=== PATIENT | male | born 1960 | race Two or more races ===

== ENCOUNTER 2024-09-23 19:34 | Emergency (ER) | payer MEDICAID, OTHER ==
[~2024-09-23] VITALS: Ht 170.2 cm; Wt 67.8 kg
[2024-09-23 20:36] VITALS: BP 159/89; PULSE 89; RESP 16; TEMP 98.2; O2SAT 99
[2024-09-23 20:49] LABS: Urine Bacteria None Seen /hpf (None Seen)
--- NOTE | 2024-09-23 20:50 | ED.PDOC ---
General HPI Comments HPI: Poor Historian. 64y M who presents to the ED for chief complaint of suprapubic pain. - pt states he has been having suprapubic pain with associated abdominal distention for the past 8 days. - pt states he feels like" a ball is stuck" in his abdomen - pt has been having associated dysuria, urgency and frequency with associated abdominal bloating - pt has been associated sharp pains but his abdomen and suprapubic area, rating the pain 9/10, with no noted exacerbating or relieving factors - pt otherwise has noted history of BPH - pt denies any other symptoms at this time PMH: DM, HTN, HLD, BPH PSH: thyroidectomy, L foot surgery meds: unknown allergies: denies social history: denies etoh use, denies drug use, denies tobacco use REVIEW OF SYSTEMS: CONSTITUTIONAL: Denies acute: fever, diaphoresis, chills, HEAD: Denies acute: headache, photophobia Eyes: Denies acute: Double vision, vision loss, eye pain, eye discharge. EARS: Denies acute: tinnitus, hearing loss, ear discharge, ear pain, THROAT: Denies acute: sore throat, swelling, difficulty swallowing , pain with swallowing, change in voice. NECK: Denies acute: neck pain, neck swelling, stiff neck. HEART: Denies acute : chest pain, palpitations, LUNGS: Denies acute: SOB, wheezing, cough, hemoptysis ABDOMEN: Denies acute: , Nausea, Vomiting, diarrhea, melena , hematemesis, hematochezia SKIN: Denies acute: rash, redness, lesions, itchiness. EXTREMITIES: Denies acute: calf pain, numbness, tingling, weakness, denies pain in extremity. Denies acute: Low back pain. Neuro: Denies acute: focal neurological deficit, motor or sensory focal neurological deficit, tremors, seizure like activity, confusion, dizziness, change in mental status, loss of bowel or bladder function, cauda equina like symptoms. : Denies acute: hematuria, flank pain, PSYCH: Denies acute: hallucination, suicidal ideation, homicidal ideation. PHYSICAL EXAM: General: -----[id number]---acute distress, awake and alert. Head: normocephalic, atraumatic. Neck: supple, trachea is midline, no swelling. Throat: Normal phonation. Eyes:, no erythema, no purulent discharge, no proptosis, no icterus. Heart: regular rate, regular rhythm, no significant murmur appreciated. Lungs: no apparent respiratory distress, Able to speak in full sentences. No wheezing, no rhonchi, no crackles. No stridors Clear to auscultation bilaterally. Abdomen: Suprapubic tender to palpation, noted lower abdominal distention , soft, no guarding, no rebound, + bowel sounds. Neuro: Awake, Alert, oriented to name, self, situation, follows commands GCS=15. Speech is normal. Skin: no petechia, no purpura, no cyanosis, non-pale, not jaundice. Lower extremities: --trace bilateral - Pitting edema no deformity, no focal swelling, no calf TTP. Makes eye contact. moves all four extremities. Face: no apparent facial droop. Ambulating in the ED independently. ED COURSE: Chief Complaint: Urinary Time Seen by MD: 19:38 Reviewed notes: Medications, Allergies Allergies: Coded Allergies: No Known Drug Allergy (Verified Allergy, Unknown, 09/23/24) Information Source: Patient Mode of Arrival: Ambulatory Past Medical History PAST MEDICAL HISTORY: Denies Surgical History: Denies all surgeries Family History Family History: Reviewed,noncontributory to illness Social History Smoker: Non-Smoker Alcohol: Denies ETOH Use Drugs: Denies Drug Use Was a procedure done? Was a procedure done?: No Differential Diagnosis Kidney stone (Female): N/A Urinary Problem (Male): Bladder Outlet, Bladder Obstruction, Epididymitis, Prostatitis, Plelonephritis, Post op Complications, Renal Failure, Urethritis, Urinary Retention, Urolithiasis, UTI X-Ray, Labs, Meds, VS Vital Signs Date Time Temp Pulse Resp B/P (MAP) Pulse Ox O2 Delivery O2 Flow Rate FiO2 09/23/24 20:36 98.2 89 16 159/89 (112) 99 98.2 Lab Test 09/23/24 20:55 09/23/24 20:47 09/23/24 20:02 Range/Units Troponin I High Sensitivity 3 L 3 L </=54 ng/L Urine Color Light-yellow Yellow Urine Clarity Clear Clear Urine pH 5.5 5.0-9.0 Urine Specific [place] 1.011 1.001-1.035 Urine Protein Negative Negative Urine Ketones Negative Negative Urine Blood Negative Negative /uL Urine Nitrite Negative Negative Urine Bilirubin Negative Negative Urine Urobilinogen Normal Negative mg/dL Urine Leukocyte Esterase Negative Negative /uL Urine RBC <1 0 - 3 /hpf Urine Microscopic WBC < 1 0-3 /HPF Urine Squamous Epithelial Cells Few <5 /hpf Urine Bacteria None seen None Seen /hpf Urine Glucose 4+ H Normal mg/dL White Blood Count 9.4 4.4-10.8 10^3/uL Red Blood Count 4.72 4.5-5.90 10^6/uL Hemoglobin 14.6 13.5-17.5 g/dL Hematocrit 40.9 L 41.0-53.0 % Mean Corpuscular Volume 86.5 80.0-100.0 fL Mean Corpuscular Hemoglobin 30.9 28.0-32.0 pg Mean Corpuscular Hemoglobin Concent 35.7 32.0-36.0 g/dL Red Cell Distribution Width 12.9 11.8-14.3 % Platelet Count 157 140-450 10^3/uL Mean Platelet Volume 11.5 H 6.9-10.8 fL Neutrophils (%) (Auto) 63.6 37.0-80.0 % Lymphocytes (%) (Auto) 24.4 10.0-50.0 % Monocytes (%) (Auto) 10.0 0.0-12.0 % Eosinophils (%) (Auto) 1.3 0.0-7.0 % Basophils (%) (Auto) 0.7 0.0-2.0 % Neutrophils # (Auto) 6.0 1.6-8.6 10 ^3/uL Lymphocytes # (Auto) 2.3 0.4-5.4 10 ^3/uL Monocytes # (Auto) 0.9 0-1.3 10 ^3/uL Eosinophils # (Auto) 0.1 0-0.8 10 ^3/uL Basophils # (Auto) 0.1 0-0.2 10 ^3/uL Nucleated Red Blood Cells 0.0 % Sodium Level 138 136-145 mmol/L Potassium Level 4.3 3.5-5.1 mmol/L Chloride Level 101 98-107 mmol/L Carbon Dioxide Level 30 20-31 mmol/L Anion Gap 7 5-15 Blood Urea Nitrogen 26 H 9-23 mg/dL Creatinine 1.65 H 0.700-1.30 mg/dL Glomerular Filtration Rate Calc 46 >90 mL/min BUN/Creatinine Ratio 15.8 10.0-20.0 Serum Glucose 375 H 74-106 mg/dL Lactic Acid Level 0.7 0.4-2.0 mmol/L Calcium Level 10.5 H 8.7-10.4 mg/dL Total Bilirubin 1.0 0.2-1.0 mg/dL Aspartate Amino Transferase (AST) 57 H 13-40 U/L Alanine Aminotransferase (ALT) 91 H 7-40 U/L Alkaline Phosphatase 147 H 46-116 U/L B-Type Natriuretic Peptide 56.86 0-100 pg/mL Total Protein 7.1 5.7-8.2 g/dL Albumin 4.2 3.2-4.8 g/dL Lipase 42 12-53 U/L [place] [address] Ph: [phone] DIAGNOSTIC IMAGING Diagnostic Imaging Report : [id number] Signed PATIENT: MENDEZ MCNEALACCT: [id number] UNIT: [id number] : 1960 LOC: ER ROOM / BED: / AGE / SEX: 64 / M ADM STATUS: REG ER SERVICE 40 ORDERING PHYSICIAN: ANUM DUBON DO PROCEDURE(s): ABPL - CT AB PEL WO CON-NO ORAL OR IV REASON: abd pain ORDER NUMBER(s): [id number], ACCESSION NUMBER(s): [id number] Exam: CT CT AB PEL WO CON-NO ORAL OR IV History: abd pain Comparison Study: None TECHNIQUE: Multidetector CT of the abdomen was performed from lung bases to pubic symphysis. Imaging was performed without IV contrast. Axial, coronal and sagittal multiplanar reformats were obtained from the axial data set by the t echnologist. Radiation Dose Information: CT Dose: CTDI volume is 5.88 mGy. Dose-length product is 345.84 mGy*cm FINDINGS: Evaluation of solid organs is limited due to lack of intravenous contrast use. Findings: Lung Bases: No acute or significant lung base finding. Normal heart size. No pleural or pericardial effusion. Liver: The liver is normal in size. No focal lesions. Gallbladder and Biliary Tree: Unremarkable Spleen: Unremarkable Pancreas: The pancreas is grossly normal in appearance. Adrenal Glands: Unremarkable Kidneys: Findings worrisome for bilateral hydronephrosis. Bladder: Bladder distended with urine and mild thickening of the bladder wall measuring 5 mm. Measures 17 cm in length 9.8 cm in AP dimension and 12.6 cm in transverse dimension. Bowel: The stomach is grossly normal in appearance. Small bowel and colon are normal in caliber and distribution. The appendix is not visualized; however, no secondary findings of acute appendicitis identified. Ascites: Absent Lymphadenopathy: No mesenteric, retroperitoneal or periportal lymphadenopathy. Abdominal Wall and Mesentery: Unremarkable. Vasculature: The visualized abdominal aorta is normal in size and caliber. Evaluation of abdominal and pelvic vessels is limited due to lack of intravenous contrast. Pelvic Organs: Correlate with PSA. Musculoskeletal: No aggressive focal bony lesions, acute fractures or dislocation. Soft tissues: Unremarkable IMPRESSION: 1. Bilateral hydronephrosis with markedly urine distended bladder and mild bladder wall thickening may represent chronic bladder outlet obstruction. Prostate measures 7.4 x 6.8 cm correlate with PSA. 2. No findings of bowel obstruction. 3. Stool throughout colon. Radiation optimization: All CT scans at this facility use at least one of these dose optimization techniques: automated exposure control mA and/or kV adjustment per patient size (includes targeted exams where dose is matched to clinical indication) or iterative reconstruction. ATED BY: ODALYS ZIMMERMAN Jr., DO DICTATED DATE/TIME: 09/23/242108 SIGNED BY: ODALYS ZIMMERMAN Jr., SIGNED DATE/TIME: 09/23/242108 CC: Time of 1ST Reevaluation: 00:00 Reevaluation 1ST: N/A Patient Education/Counseling: Diagnosis, Treatment Family Education/Counseling: No Family Present Comments Patient presented with the above HPI.--pelvic/lower abdominal pain----workup was initiated. patient was found with the above mentioned diagnosis. the following medications were ordered: please refer to order lists of meds and tests obtained by myself Dr. Dubon. Patient ED course and VS have been stabilized. Patient has been reassessed in the ED and remained in a stable condition. Patient has been observed in the ED adequate length of time to insure improvement/stability. Escalation of care considered: Consideration of escalation to observation or admission Patient was found with acute urinary retention. Rucker catheter was ordered. No associated renal injury. Patient instructed to follow up with the Urology. I was later informed that the patient left without signing the discharge paper. Patient was DISCHARGED home in a stable condition. All the reports of any imaging studies that were ordered by myself were reviewed by myself. Departure 1 Departure Time of Disposition: 21:06 Impression: Primary Impression: Acute urinary retention Additional Impressions: Enlarged prostate Bilateral hydronephrosis Hyperglycemia Disposition: HOME / SELF CARE / HOMELESS Condition: Stable Additional Instructions: Additional instructions: You MUST follow-up with your primary care/family doctor in 1 to 2 days. If you are unable to see your primary care/family doctor, please return to our emergency room for re-assessment and re-evaluation in 1 to 2 days. Return to the emergency room here in our facility or to the nearest ER [facility] if your symptoms change or worsen. CONSULTATIONS: you MUST Follow-up for consultation as soon as possible with: -urology in 1-2 days. Please call for appointment. You MUST call the consultants office yourself to make an appointment. You may need to arrange that through your insurance and/or your primary/family doctor. If you are unable to see the oim consultant in 1 to 2 days, you must return to our emergency room (or any other ER of your choice) for re-assessment and re- evaluation. Adequate fluid hydration. Keep Rucker catheter in until you are evaluated by Urology. Below is a copy of your radiological report for follow up: [address] [address] Ph: [phone] DIAGNOSTIC IMAGING Diagnostic Imaging Report : [id number] Signed PATIENT: MENDEZ MCNEAL ACCT: [id number] UNIT: [id number] : 1960 LOC: ER ROOM / BED: / AGE / SEX: 64 / M ADM STATUS: REG ER SERVICE 40 ORDERING PHYSICIAN: ANUM DUBON DO PROCEDURE(s): ABPL - CT AB PEL WO CON-NO ORAL OR IV REASON: abd pain ORDER NUMBER(s): [id number], ACCESSION NUMBER(s): [id number] Exam: CT CT AB PEL WO CON-NO ORAL OR IV History: abd pain Comparison Study: None TECHNIQUE: Multidetector CT of the abdomen was performed from lung bases to pubic symphysis. Imaging was performed without IV contrast. Axial, coronal and sagittal multiplanar reformats were obtained from the axial data set by the technologist. Radiation Dose Information: CT Dose: CTDI volume is 5.88 mGy. Dose-length product is 345.84 mGy*cm FINDINGS: Evaluation of solid organs is limited due to lack of intravenous contrast use. Findings: Lung Bases: No acute or significant lung base finding. Normal heart size. No pleural or pericardial effusion. Liver: The liver is normal in size. No focal lesions. Gallbladder and Biliary Tree: Unremarkable Spleen: Unremarkable Pancreas: The pancreas is grossly normal in appearance. Adrenal Glands: Unremarkable Kidneys: Findings worrisome for bilateral hydronephrosis. Bladder: Bladder distended with urine and mild thickening of the bladder wall measuring 5 mm. Measures 17 cm in length 9.8 cm in AP dimension and 12.6 cm in transverse dimension. Bowel: The stomach is grossly normal in appearance. Small bowel and colon are normal in caliber and distribution. The appendix is not visualized; however, no secondary findings of acute appendicitis identified. Ascites: Absent Lymphadenopathy: No mesenteric, retroperitoneal or periportal lymphadenopathy. Abdominal Wall and Mesentery: Unremarkable. Vasculature: The visualized abdominal aorta is normal in size and caliber. Evaluation of abdominal and pelvic vessels is limited due to lack of intravenous contrast. Pelvic Organs: Correlate with PSA. Musculoskeletal: No aggressive focal bony lesions, acute fractures or dislo cation. Soft tissues: Unremarkable IMPRESSION: 1. Bilateral hydronephrosis with markedly urine distended bladder and mild bladder wall thickening may represent chronic bladder outlet obstruction. Prostate measures 7.4 x 6.8 cm correlate with PSA. 2. No findings of bowel obstruction. 3. Stool throughout colon. Radiation optimization: All CT scans at this facility use at least one of these dose optimization techniques: automated exposure control mA and/or kV adjustment per patient size (includes targeted exams where dose is matched to clinical indication) or iterative reconstruction. ATED BY: ODALYS ZIMMERMAN Jr., DO DICTATED DATE/TIME: 09/23/242108 SIGNED BY: ODALYS ZIMMERMAN Jr., SIGNED DATE/TIME: 09/23/242108 CC: Discharged With: Self Critical Care Note Critical Care Time?: Yes (35 min-critical care time only) I personally scribed for ANUM DUBON DO ([facility] on 09/23/24 at 20:50. Electronically submitted by [facility] ([facility] I personally scribed for ANUM DUBON DO ([email or web address]) on 09/23/24 at 21:46. Electronically submitted by [facility]enc[facility] Palmer ([facility]). I personally scribed for ANUM DUBON DO ([email or web address]) on 09/23/24 at 22:11. Electronically submitted by [facility] Palmer ([facility]). ANUM DUBON DO Sep 23, 2024 20:50
[2024-09-23 20:56] LABS: Urine Blood Negative /uL (Negative); Urine Clarity Clear (Clear); Urine Color Light-Yellow (Yellow); Urine Protein, UAD Negative (Negative); Urine Specific Gravity 1.011 (1.001-1.035); Urine Squamous Epithelial Cell FEW /hpf (<5); Urine Urobilinogen Normal (Negative); Urine WBC < 1 /HPF (0-3); Urine pH 5.5 (5.0-9.0)
[2024-09-23 20:58] LABS: Albumin 4.2 g/dL (3.2-4.8); Anion Gap 7 (5-15); BUN/Creatinine Ratio 15.8 (10.0-20.0); Carbon Dioxide 30 mmol/L (20-31); Chloride 101 mmol/L (98-107); Potassium 4.3 mmol/L (3.5-5.1); Sodium 138 mmol/L (136-145); Total Protein 7.1 g/dL (5.7-8.2)
[2024-09-23 21:02] LABS: Alanine Aminotransferase 91 U/L (7-40); Alkaline Phosphatase 147 U/L (46-116); Aspartate Aminotransferase 57 U/L (13-40); Blood Urea Nitrogen 26 mg/dL (9-23); Calcium 10.5 mg/dL (8.7-10.4); Glucose 375 mg/dL (74-106)
[2024-09-23 21:07] LABS: Basophils # (auto) 0.1 10 ^3/uL (0-0.2); Basophils % (auto) 0.7 % (0.0-2.0); Eosinophils # (auto) 0.1 10 ^3/uL (0-0.8); Eosinophils % (auto) 1.3 % (0.0-7.0); Hematocrit 40.9 % (41.0-53.0); Hemoglobin 14.6 g/dL (13.5-17.5); Lymphocytes # (auto) 2.3 10 ^3/uL (0.4-5.4); Lymphocytes % (auto) 24.4 % (10.0-50.0); Mean Corpuscular Hemoglobin 30.9 pg (28.0-32.0); Mean Corpuscular Hgb Conc. 35.7 g/dL (32.0-36.0); Mean Corpuscular Volume 86.5 fL (80.0-100.0); Monocytes # (auto) 0.9 10 ^3/uL (0-1.3); Neutrophils % (auto) 63.6 % (37.0-80.0); Platelet Count (auto) 157 10^3/uL (140-450); Red Blood Cells 4.72 10^6/uL (4.5-5.90); Red Cell Distribution Width 12.9 % (11.8-14.3); White Blood Cell 9.4 10^3/uL (4.4-10.8)
--- NOTE | 2024-09-23 21:11 | DVH ---
Exam: CT CT AB PEL WO CON-NO ORAL OR IV History: abd pain Comparison Study: None TECHNIQUE: Multidetector CT of the abdomen was performed from lung bases to pubic symphysis. Imaging was performed without IV contrast. Axial, coronal and sagittal multiplanar reformats were obtained fr om the axial data set by the technologist. Radiation Dose Information: CT Dose: CTDI volume is 5.88 mGy. Dose-length product is 345.84 mGy*cm FINDINGS: Evaluation of solid organs is limited due to lack of intravenous contrast use. Findings: Lung Bases: No acute or significant lung base finding. Normal heart size. No pleural or pericardial effusion. Liver: The liver is normal in size. No focal lesions. Gallbladder and Biliary Tree: Unremarkable Spleen: Unremarkable Pancreas: The pancreas is grossly normal in appearance. Adrenal Glands: Unremarkable Kidneys: Findings worrisome for bilateral hydronephrosis. Bladder: Bladder distended with urine and mild thickening of the bladder wall measuring 5 mm. Measure s 17 cm in length 9.8 cm in AP dimension and 12.6 cm in transverse dimension. Bowel: The stomach is grossly normal in appearance. Small bowel and colon are normal in caliber and d istribution. The appendix is not visualized; however, no secondary findings of acute appendicitis id entified. Ascites: Absent Lymphadenopathy: No mesenteric, retroperitoneal or periportal lymphadenopathy. Abdominal Wall and Mesentery: Unremarkable. Vasculature: The visualized abdominal aorta is normal in size and caliber. Evaluation of abdominal a nd pelvic vessels is limited due to lack of intravenous contrast. Pelvic Organs: Correlate with PSA. Musculoskeletal: No aggressive focal bony lesions, acute fractures or dislocation. Soft tissues: Unremarkable IMPRESSION: 1. Bilateral hydronephrosis with markedly urine distended bladder and mild bladder wall thickening ma y represent chronic bladder outlet obstruction. Prostate measures 7.4 x 6.8 cm correlate with PSA. 2. No findings of bowel obstruction. 3. Stool throughout colon. Radiation optimization: All CT scans at this facility use at least one of these dose optimization te chniques: automated exposure control mA and/or kV adjustment per patient size (includes targeted exa ms where dose is matched to clinical indication) or iterative reconstruction.
[2024-09-23 21:13] LABS: Lipase 42 U/L (12-53)
[2024-09-23] MEDS ORDERED: LIDOCAINE HCL 2% TOP JELLY 5ML TOP ONE (23:47)
== END 2024-09-23 23:50 | disposition home or self-care (01) ==
LOC: ER 19:34
DX: N40.1 Benign prostatic hyperplasia with lower urinary tract symptoms (principal); R33.9 Retention of urine, unspecified; N13.30 Unspecified hydronephrosis; E11.65 Type 2 diabetes mellitus with hyperglycemia; E78.5 Hyperlipidemia, unspecified; I10 Essential (primary) hypertension; Z90.89 Acquired absence of other organs
CPT/HCPCS: 36415; 74176; 80053; 81001; 83605; 83690; 83880; 84484; 85025

== ENCOUNTER 2024-09-26 12:15 | Inpatient (IN) | payer MEDICAID ==
[~2024-09-26] VITALS: Ht 165.1 cm; Wt 63.4 kg
--- NOTE | 2024-09-26 12:28 | ED.PDOC ---
GI ASSESSMENT HPI Comments 64 y/o M, with no prior medical history presents to the ED for CC of abdominal pain. Patient states, he has been experiencing RLQ abdominal pain with associated symptoms of nausea and vomiting [id number]. Patient reports, being seen at [facility] for SS on 09/23/24 and being departed with unremarkable findings. Patient denies fever, chills, back pain, or diarrhea. No other symptoms or modifying factors present at this time. Time Seen by MD: 12:30 Reviewed Notes: Nurses Notes, Medications, Allergies Allergies: Coded Allergies: No Known Drug Allergy (Verified Allergy, Unknown, 09/23/24) Information Source: Patient Mode of Arrival: Wheelchair Timing: Days Duration: Since onset Prehospital treatment: None Quality: None Vomitus: Watery Stool: Normal Severity: Moderate Recent: None Recent Hx of: None Pain Location: RLQ Modifying Factors: Nothing Associated sign and symptoms: Nausea, Vomiting, Abdominal Pain Past Medical History PAST MEDICAL HISTORY: Denies Surgical History: Denies all surgeries Family History Family History: Reviewed,noncontributory to illness Social History Smoker: Non-Smoker Alcohol: Denies ETOH Use Drugs: Denies Drug Use Lives In: Home Constitutional: denies: chills, diaphoresis, fatigue, fever, malaise, sweats, weakness, others EENTM: denies: blurred vision, double vision, ear bleeding, ear discharge, ear drainage, ear pain, ear ringing, eye pain, eye redness, hearing loss, mouth pain, mouth swelling, nasal discharge, nose bleeding, nose congestion, nose pain, photophobia, tearing, throat pain, throat swelling, voice changes, others Respiratory: denies: cough, hemoptysis, orthopnea, SOB at rest, shortness of breath, SOB with excertion, stridor, wheezing, others Cardiovascular: denies: chest pain, dizzy spells, diaphoresis, Dyspnea on exertion, edema, irregular heart beat, left arm pain, lightheadedness, palpitations, PND, syncope, others Gastrointestinal: reports: abdominal pain, nausea, vomiting; denies: abdomen distended, blood streaked bowels, constipated, diarrhea, dysphagia, difficulty swallowing, hematemesis, melena, poor appetite, poor fluid intake, rectal bleeding, rectal pain, others Genitourinary: denies: burning, dysuria, flank pain, frequency, hematuria, incontinence, penile discharge, penile sore, pain, testicle pain, testicle swelling, urgency, others Neurological: denies: dizziness, fainting, headache, left sided numbness, left sided weakness, numbness, paresthesia, pre-existing deficit, right sided numbness, right sided weakness, seizure, speech problems, tingling, tremors, weakness, others Musculoskeletal: denies: back pain, gout, joint pain, joint swelling, muscle pain, muscle stiffness, neck pain, others Integumetry: denies: bruises, change in color, change in hair/nails, dryness, laceration, lesions, lumps, rash, wounds, others Allergic/Immunocompromised: denies: Difficulty Healing, Frequent Infections, Hives, Itching, others Hematologic/Lymphatic: denies: anemia, blood clots, easy bleeding, easy bruising, swollen glands, others Endocrine: denies: excessive hunger, excessive sweating, excessive thirst, excessive urination, flushing, intolerance to cold, intolerance to heat, unexplained weight gain, unexplained weight loss, others Psychiatric: denies: anxiety, bipolar disorder, depression, hopeless, panic disorder, schizophrenia, sleepless, suicidal, others All Other Systems: Reviewed and Negative Physical Exam General Appearance: Moderate Distress HEENT: Normal ENT Inspection, Pharynx Normal, TMs Normal Neck: Full Range of Motion, Non-Tender, Normal, Normal Inspection Respiratory: Chest Non-Tender, Lungs Clear, No Accessory Muscle Use, No Respiratory Distress, Normal Breath Sounds Cardiovascular: No Edema, No JVD, No Murmur, No Gallop, Normal Peripheral Pulses, Regular Rate/Rhythm Breast Exam: Deferred Gastrointestinal: No Organomegaly, No Pulsatile Mass, Normal Bowel Sounds, Soft, Tenderness, Other (Mid abdominal mass) Genitalia: Deferred Pelvic: Deferred Rectal: Deferred Extremities: No calf tenderness, Normal capillary refill, Normal inspection, Normal range of motion, Non-tender, No pedal edema Musculoskeletal : Apperance: Normal Neurologic: Alert, housekeeper cleaning cooking II-XII nml as Tested, No Motor Deficits, Normal Affect, Normal Mood, No Sensory Deficits Cerebellar Function: Normal Reflexes: Normal Skin: Dry, Normal Color, Warm Lymphatic: No Adenopathy Was a procedure done? Was a procedure done?: No GI differential Dx Differential Diagnosis: Gastritis/PUD, Gastroenteritis, Electrolyte Imbalance, Food Poisoning, Bacterial, Viral X-Ray, Labs, Meds, VS Vital Signs Date Time Temp Pulse Resp B/P (MAP) Pulse Ox O2 Delivery O2 Flow Rate FiO2 09/26/24 12:32 98.3 74 16 185/91 (122) 97 98.3 Lab Test 09/26/24 12:58 09/26/24 12:01 Range/Units White Blood Count 12.1 #H 4.4-10.8 10^3/uL Red Blood Count 4.97 4.5-5.90 10^6/uL Hemoglobin 15.2 13.5-17.5 g/dL Hematocrit 43.5 41.0-53.0 % Mean Corpuscular Volume 87.6 80.0-100.0 fL Mean Corpuscular Hemoglobin 30.6 28.0-32.0 pg Mean Corpuscular Hemoglobin Concent 35.0 32.0-36.0 g/dL Red Cell Distribution Width 12.7 11.8-14.3 % Platelet Count 138 L 140-450 10^3/uL Mean Platelet Volume 10.7 6.9-10.8 fL Neutrophils (%) (Auto) 77.0 37.0-80.0 % Lymphocytes (%) (Auto) 13.0 10.0-50.0 % Monocytes (%) (Auto) 8.6 0.0-12.0 % Eosinophils (%) (Auto) 0.8 0.0-7.0 % Basophils (%) (Auto) 0.6 0.0-2.0 % Neutrophils # (Auto) 9.3 H 1.6-8.6 10 ^3/uL Lymphocytes # (Auto) 1.6 0.4-5.4 10 ^3/uL Monocytes # (Auto) 1.0 0-1.3 10 ^3/uL Eosinophils # (Auto) 0.1 0-0.8 10 ^3/uL Basophils # (Auto) 0.1 0-0.2 10 ^3/uL Nucleated Red Blood Cells 0.0 % Sodium Level 133 #L 136-145 mmol/L Potassium Level 5.1 3.5-5.1 mmol/L Chloride Level 98 98-107 mmol/L Carbon Dioxide Level 27 20-31 mmol/L Anion Gap 8 5-15 Blood Urea Nitrogen 32 H 9-23 mg/dL Creatinine 3.08 H 0.700-1.30 mg/dL Glomerular Filtration Rate Calc 22 >90 mL/min BUN/Creatinine Ratio 10.4 10.0-20.0 Serum Glucose 405 *H 74-106 mg/dL Calcium Level 10.4 8.7-10.4 mg/dL Urine Color Light-yellow Yellow Urine Clarity Clear Clear Urine pH 5.5 5.0-9.0 Urine Specific [place] 1.006 1.001-1.035 Urine Protein Negative Negative Urine Ketones Negative Negative Urine Blood Negative Negative /uL Urine Nitrite Negative Negative Urine Bilirubin Negative Negative Urine Urobilinogen Normal Negative mg/dL Urine Leukocyte Esterase Negative Negative /uL Urine RBC <1 0 - 3 /hpf Urine Microscopic WBC 2 0-3 /HPF Urine Squamous Epithelial Cells None seen <5 /hpf Urine Bacteria None seen None Seen /hpf Urine Glucose 4+ H Normal mg/dL The CBC shows an elevated white blood cell count is 12.1 The chemistry panel shows a BUN of 32 and a creatinine of 3.08 The patient's glucose is 405 indicating hyperglycemia The patient is being given insulin as well as normal saline as a bolus The urine test is negative for infection The patient is being admitted at this time. A Rucker catheter was ordered. Images Reviewed?: Images reviewed and evaluated by me Time of 1ST Reevaluation: 13:00 Reevaluation 1ST: Unchanged Patient Education/Counseling: Diagnosis, Treatment, Prognosis Family Education/Counseling: No Family Present Departure 1 Departure Time of Disposition: 14:21 Impression: Primary Impression: Intractable abdominal pain Additional Impressions: Hyperglycemia Generalized weakness Disposition: ADMITTED INPATIENT Admit to: [facility] Condition: Fair Critical Care Note Critical Care Time?: No Stability Stability form required: Yes Unstable for transfer: Telemetry monitoring (Telemetry monitoring required), ED Physician Assesment (Clinical assesment) Heart Score Heart Score: Heart Score Response (Comments) Value History N/A 0 EKG N/A 0 Age N/A 0 Risk Factors N/A 0 Troponin N/A 0 Total 0 I personally scribed for ALESIA PRIDE MD ([email or web address]) on 09/26/24 at 12:28. Electronically submitted by Shania Haq ([email or web address]). I personally scribed for ALESIA PRIDE MD ([email or web address]) on 09/26/24 at 12:35. Electronically submitted by Shania Haq ([email or web address]). ALESIA PRIDE MD Sep 26, 2024 12:28
[2024-09-26 12:41] LABS: Urine Bacteria None Seen /hpf (None Seen)
[2024-09-26 13:18] LABS: Basophils # (auto) 0.1 10 ^3/uL (0-0.2); Basophils % (auto) 0.6 % (0.0-2.0); Eosinophils # (auto) 0.1 10 ^3/uL (0-0.8); Eosinophils % (auto) 0.8 % (0.0-7.0); Hematocrit 43.5 % (41.0-53.0); Hemoglobin 15.2 g/dL (13.5-17.5); Lymphocytes # (auto) 1.6 10 ^3/uL (0.4-5.4); Mean Corpuscular Hemoglobin 30.6 pg (28.0-32.0); Mean Corpuscular Volume 87.6 fL (80.0-100.0); Monocytes % (auto) 8.6 % (0.0-12.0); Neutrophils # (auto) 9.3 10 ^3/uL (1.6-8.6); Platelet Count (auto) 138 10^3/uL (140-450); Red Blood Cells 4.97 10^6/uL (4.5-5.90); Red Cell Distribution Width 12.7 % (11.8-14.3); White Blood Cell 12.1 10^3/uL (4.4-10.8)
[2024-09-26 13:25] LABS: Potassium 5.1 mmol/L (3.5-5.1)
[2024-09-26 13:26] LABS: Anion Gap 8 (5-15); Calcium 10.4 mg/dL (8.7-10.4); Carbon Dioxide 27 mmol/L (20-31)
[2024-09-26 13:29] LABS: Chloride 98 mmol/L (98-107); Sodium 133 mmol/L (136-145)
[2024-09-26 13:31] LABS: BUN/Creatinine Ratio 10.4 (10.0-20.0)
[2024-09-26 13:34] LABS: Blood Urea Nitrogen 32 mg/dL (9-23)
[2024-09-26 13:41] LABS: Glucose 405 mg/dL (74-106)
[2024-09-26 13:46] LABS: Urine Blood Negative /uL (Negative); Urine Clarity Clear (Clear); Urine Color Light-Yellow (Yellow); Urine Protein, UAD Negative (Negative); Urine Specific Gravity 1.006 (1.001-1.035); Urine Squamous Epithelial Cell None Seen /hpf (<5); Urine Urobilinogen Normal (Negative); Urine WBC 2 /HPF (0-3); Urine pH 5.5 (5.0-9.0)
[2024-09-26] MEDS ORDERED: DEXTROSE (50%) 50ML SYRG IV PRN (15:30)
[2024-09-26] MEDS: ACCU-CHEK COMFORT CURVE STRIP VI SCH (16:37)
[2024-09-26] MEDS: InsuLIN REG 1unit/0.01ml Soln (100units/ml) SC SCH (16:44)
[2024-09-26] MEDS: NIFEdipine ER 30 MG TAB PO SCH (16:45)
[2024-09-26] MEDS: cefTRIAXone 1GM/50ML D5W 50 ML IV SCH (16:45)
[2024-09-26] MEDS: INSULIN LANTUS (GLARGINE) 1 /0.01ml (100units/ml) SC SCH (16:46)
[2024-09-26 16:52] VITALS: BP 164/91; PULSE 68; PULSE 78; RESP 18; TEMP 98.7; O2SAT 97; O2SAT 99
[2024-09-26 16:58] VITALS: BP 164/91; PULSE 68; RESP 18; TEMP 98.7; O2SAT 99
--- NOTE | 2024-09-26 16:58 | DVHHP2 ---
SELVIN COLLINS RESIDENT 09/26/24 1108: History of Present Illness Reason for Visit: acute urinary retention History of Present Illness 64-year-old male with a history of type 2 diabetes mellitus, hypertension, hyperlipidemia, and BPH, who presents to the ED with abdominal pain. He reports suprapubic discomfort for the past 8 days, described as a sensation of "a ball stuck in the abdomen," associated with dysuria, urgency, frequency, and bloat ing. He denies fever, chills, back pain, or diarrhea. He also noted RLQ pain with nausea and vomiting for approximately 10 days. Pain is rated 9/10 and has been sharp in nature. No noted exacerbating or relieving factors. He reports a known history of BPH. Denies other symptoms. Patient was seen on the ED due to urinary obstruction on September 23, patient was without ng at my assessment Past Medical History: Type 2 Diabetes Mellitus Hypertension Hyperlipidemia Benign Prostatic Hyperplasia Past Surgical History: Thyroidectomy Foot surgery Medications: Unknown Allergies: NKDA Family History: Non-contributory Social History: Denies tobacco, alcohol, or drug use Lives at home Review of Systems Review of Systems Review of Systems: Constitutional: Denies fever, chills, weight loss HEENT: Denies ear pain, nasal drainage CV: Denies chest pain, palpitations Respiratory: Denies SOB GI: Reports abdominal pain, nausea, vomiting, abdominal distension, constipation : Reports dysuria, urgency, frequency, BPH Neuro: Denies focal deficits, headaches, or seizures Psych: Denies anxiety or depression Skin: Denies rash or lesions Allergies: Coded Allergies: No Known Drug Allergy (Verified Allergy, Unknown, 09/23/24) Medications Current Medications Medications Dose Ordered Sig/Cedric Route Start Time Stop Time Status Last Admin Dose Admin Enoxaparin Sodium 30 mg DAILY SC 09/27/24 10:00 Insulin Glargine 15 units HS SC 09/26/24 15:15 09/26/24 16:46 15 UNITS Nifedipine 30 mg DAILY PO 09/26/24 15:15 09/26/24 16:45 30 MG Tamsulosin HCl 0.4 mg QPM PO 09/26/24 18:00 Ceftriaxone Sodium 50 ml @ 100 mls/hr DAILY@09 IV 09/26/24 15:15 09/26/24 16:45 100 MLS/HR Diagnostic Test (Pha) 1 strip IQ4HR 09/26/24 16:00 09/26/24 16:37 1 STRIP Insulin Human Regular IQ4HR SC 09/26/24 16:00 09/26/24 16:44 8 UNITS Dextrose 50 ml UD PRN IV 09/26/24 15:30 Exam Vital Signs Vital Signs Date Time Temp Pulse Resp B/P (MAP) Pulse Ox O2 Delivery O2 Flow Rate FiO2 09/26/24 16:45 164/91 09/26/24 14:50 98.0 76 18 97 98.0 Exam Physical Exam: General: Appears uncomfortable HEENT: No scleral icterus or oral lesions Cardiovascular: RRR, no murmurs Pulmonary: Clear to auscultation Abdomen: Distended, tenderness in suprapubic and RLQ area, no rebound or guardin g, no CVA tenderness : Ng inserted with 700 cc urine output Neuro: Alert and oriented x3 Extremities: No edema Skin: No rashes or lesions Labs/Xrays Labs Test 09/26/24 16:35 09/26/24 12:58 09/26/24 12:01 Range/Units POC Glucose 323 H 70-106 mg/dl White Blood Count 12.1 #H 4.4-10.8 10^3/uL Red Blood Count 4.97 4.5-5.90 10^6/uL Hemoglobin 15.2 13.5-17.5 g/dL Hematocrit 43.5 41.0-53.0 % Mean Corpuscular Volume 87.6 80.0-100.0 fL Mean Corpuscular Hemoglobin 30.6 28.0-32.0 pg Mean Corpuscular Hemoglobin Concent 35.0 32.0-36.0 g/dL Red Cell Distribution Width 12.7 11.8-14.3 % Platelet Count 138 L 140-450 10^3/uL Mean Platelet Volume 10.7 6.9-10.8 fL Neutrophils (%) (Auto) 77.0 37.0-80.0 % Lymphocytes (%) (Auto) 13.0 10.0-50.0 % Monocytes (%) (Auto) 8.6 0.0-12.0 % Eosinophils (%) (Auto) 0.8 0.0-7.0 % Basophils (%) (Auto) 0.6 0.0-2.0 % Neutrophils # (Auto) 9.3 H 1.6-8.6 10 ^3/uL Lymphocytes # (Auto) 1.6 0.4-5.4 10 ^3/uL Monocytes # (Auto) 1.0 0-1.3 10 ^3/uL Eosinophils # (Auto) 0.1 0-0.8 10 ^3/uL Basophils # (Auto) 0.1 0-0.2 10 ^3/uL Nucleated Red Blood Cells 0.0 % Sodium Level 133 #L 136-145 mmol/L Potassium Level 5.1 3.5-5.1 mmol/L Chloride Level 98 98-107 mmol/L Carbon Dioxide Level 27 20-31 mmol/L Anion Gap 8 5-15 Blood Urea Nitrogen 32 H 9-23 mg/dL Creatinine 3.08 H 0.700-1.30 mg/dL Glomerular Filtration Rate Calc 22 >90 mL/min BUN/Creatinine Ratio 10.4 10.0-20.0 Serum Glucose 405 *H 74-106 mg/dL Calcium Level 10.4 8.7-10.4 mg/dL Urine Color Light-yellow Yellow Urine Clarity Clear Clear Urine pH 5.5 5.0-9.0 Urine Specific [place] 1.006 1.001-1.035 Urine Protein Negative Negative Urine Ketones Negative Negative Urine Blood Negative Negative /uL Urine Nitrite Negative Negative Urine Bilirubin Negative Negative Urine Urobilinogen Normal Negative mg/dL Urine Leukocyte Esterase Negative Negative /uL Urine RBC <1 0 - 3 /hpf Urine Microscopic WBC 2 0-3 /HPF Urine Squamous Epithelial Cells None seen <5 /hpf Urine Bacteria None seen None Seen /hpf Urine Glucose 4+ H Normal mg/dL Assessment/Plan Assessment/Plan #Acute urinary retention #EFRAIN due to obstructive uropathy #Sepsis due to UTI? #Bilateral hydronephrosis with markedly urine distended bladder and mild bladder wall thickening may represent chronic bladder outlet obstruction #BPH #Uncontrolled diabetes type 2 #Hypertensive crisis Admit Med/Surg Ng insertion: 700 cc drained Ceftriaxone IV Nifedipine PO Tamsulosin PO Lantus 15 ui ISS Pending: urine studies, urine culture Pending kidney ultrasound Pending PSA Case discussed with Dr Og Vasquez discussed with: Patient, Other My Orders Orders - SELVIN COLLINS RESIDENT Procedure Category Date Status Time Admit ADMIT 09/26/24 Transmitted 15:04 Code Status CODE 09/26/24 Transmitted 15:04 Vital Signs LARA 09/26/24 In Process 15:04 Review Orders With LARA 09/26/24 In Process Adm. 15:04 Consistent DIET 09/26/24 Transmitted Carb(Ccho)Diabetes Dinner Notify Md Of Changes LARA 09/26/24 In Process From Base 15:04 Advance Directive LARA 09/26/24 In Process 15:04 Patient Condition ORDERS 09/26/24 Transmitted 15:04 Allergies LARA 09/26/24 In Process 15:04 Insert/Manage Urinary LARA 09/26/24 In Process Catheter 15:04 Communication Order ORDERS 09/26/24 Transmitted 15:04 Insulin Lantus PHA 09/26/24 In Process (Glargine) (Lantus) 15:15 Bladder Scan ED NURSING 09/26/24 Transmitted Nifedipine Er PHA 09/26/24 In Process (Procardia Xl 15:15 Tamsulosin PHA 09/26/24 In Process Hydrochloride (Flomax) 18:00 Ceftriaxone 1gm/50ml PHA 09/26/24 In Process D5w (Rocephin) 15:15 Glucose Blood PHA 09/26/24 In Process (Accu-Chek Comfort 16:00 Insulin R (Human) PHA 09/26/24 In Process (Insulin R) 16:00 Dextrose 50% Syringe PHA 09/26/24 In Process 15:30 Enoxaparin Sodium PHA 09/27/24 In Process (Lovenox) 10:00 Date of Service: Sep 26, 2024 Billing Provider: MOON ARCOS MD Common Visit Codes: [id number] INP/OBS CARE (HIGH) Secondary Visit Codes: [id number] CARE PLAN 30 MINUTES MOON ARCOS MD 09/30/242057: Review of Systems Allergies: Coded Allergies: No Known Drug Allergy (Verified Allergy, Unknown, 09/23/24) Date of Service: Sep 26, 2024 Billing Provider: MOON ARCOS MD Common Visit Codes: [id number] INP/OBS CARE (HIGH) SELVIN COLLINS Sep 26, 2024 16:58 MOON ARCOS MD Sep 30, 2024 20:58
[2024-09-26] MEDS: TAMSULOSIN HYDROCHLORIDE 0.4 MG CAP PO SCH (18:52)
[2024-09-26 19:32] LABS: Sodium Urine 14 mmol/L (40-220)
[2024-09-26 19:40] LABS: Protein, Urine < 6.0 mg/dL (1-14)
[2024-09-26 19:41] LABS: Amphetamine Screen, Urine Neg (NEGATIVE); Barbiturate Scree,Urine Neg (NEGATIVE); Benzodiazephine Screen, Urine Neg (NEGATIVE); Cannabinoid Screen, Urine Neg (NEGATIVE); Cocaine Screen, Urine Pos (NEGATIVE); Opiate Scree,Urine Neg (NEGATIVE); Phencyclidine Screen, Urine Neg (NEGATIVE)
[2024-09-26 20:00] VITALS: BP 158/89; PULSE 82; RESP 16; TEMP 98.5; O2SAT 98
[2024-09-26 20:30] VITALS: BP 144/87; PULSE 84; RESP 19; TEMP 98.4; O2SAT 100
--- NOTE | 2024-09-26 20:53 | DVH ---
RENAL ULTRASOUND CLINICAL HISTORY: hydroneprhosis TECHNIQUE: Multiple grayscale ultrasound images were obtained through the kidneys and urinary bladder . COMPARISON: CT abdomen and pelvis from 09/23/2024 FINDINGS: Right kidney: Measures 11.1 cm. Mild hydronephrosis. Left kidney: Measures 11.1 cm. Mild hydronephrosis. Urinary bladder: Rucker catheter decompresses the urinary bladder. IMPRESSION: Mild bilateral hydronephrosis.
[2024-09-27] VITALS (11 sets, daily range): BP systolic 110–143; BP diastolic 60–82; PULSE 74–100; RESP 18–20; TEMP 97.9–99.6; O2SAT 94–100
[2024-09-27 06:34] LABS: Basophils # (auto) 0.1 10 ^3/uL (0-0.2); Basophils % (auto) 0.8 % (0.0-2.0); Eosinophils # (auto) 0.1 10 ^3/uL (0-0.8); Hemoglobin 14.8 g/dL (13.5-17.5); Lymphocytes # (auto) 2.1 10 ^3/uL (0.4-5.4); Lymphocytes % (auto) 19.8 % (10.0-50.0); Mean Corpuscular Hemoglobin 30.8 pg (28.0-32.0); Mean Corpuscular Hgb Conc. 35.2 g/dL (32.0-36.0); Mean Corpuscular Volume 87.5 fL (80.0-100.0); Monocytes # (auto) 1.1 10 ^3/uL (0-1.3); Monocytes % (auto) 9.8 % (0.0-12.0); Neutrophils # (auto) 7.4 10 ^3/uL (1.6-8.6); Neutrophils % (auto) 68.6 % (37.0-80.0); Nucleated Red Blood Cells % 0.2 %; Platelet Count (auto) 162 10^3/uL (140-450); Red Cell Distribution Width 12.8 % (11.8-14.3); White Blood Cell 10.8 10^3/uL (4.4-10.8)
[2024-09-27 06:49] LABS: Anion Gap 10 (5-15); Carbon Dioxide 31 mmol/L (20-31); Chloride 103 mmol/L (98-107); Sodium 144 mmol/L (136-145)
[2024-09-27 06:50] LABS: Calcium 9.8 mg/dL (8.7-10.4)
[2024-09-27 06:55] LABS: BUN/Creatinine Ratio 14.4 (10.0-20.0); Blood Urea Nitrogen 28 mg/dL (9-23); Glucose 97 mg/dL (74-106)
[2024-09-27] MEDS ORDERED: cefTRIAXone 1GM/50ML D5W 50 ML IV SCH (09:00)
[2024-09-27 10:07] LABS: PSA Free 1.29 ng/mL; Prostate Specific Antigen 6.7 ng/mL (0.0-4.0)
[2024-09-27] MEDS: ENOXAPARIN SOD 30 MG/0.3 ML SYRINGE SC SCH (10:22)
--- NOTE | 2024-09-27 11:46 | DVHPNRES ---
Progress Note Date Seen: Sep 27, 2024 Resident Creating Document: SELVIN COLLINS RESIDENT Has the PT tested + for MRSA If YES, has PT been informed?: No Medical Necessity Reason Pt with a Central, PICC or Fol: No Subjective Review of Systems 64-year-old male with a history of type 2 diabetes mellitus, hypertension, hyperlipidemia, and BPH, who presents to the ED with abdominal pain. He reports suprapubic discomfort for the past 8 days, described as a sensation of "a ball stuck in the abdomen," associated with dysuria, urgency, frequency, and bloating. He denies fever, chills, back pain, or diarrhea. He also noted RLQ pain with nausea and vomiting for approximately 10 days. Pain is rated 9/10 and has been sharp in nature. No noted exacerbating or relieving factors. He reports a known history of BPH. Denies other symptoms. Patient was seen on the ED due to urinary obstruction on September 23, patient was without ng at my assessment 09/27/2024: ng catheter placed, 700 cc drained at insertion, creatinine improves from 3 to 1.9, today clear urine, we will continue monitor today, pateint will need f/u with urologist as outpatient for possible prostetctomy, PSA mildly elevated Objective vital signs Vital Sign Date Time Temp Pulse Resp B/P (MAP) Pulse Ox O2 Delivery O2 Flow Rate FiO2 09/27/24 10:22 120/72 09/27/24 09:20 98.7 83 20 98 98.7 09/26/24 16:52 Room Air* 0 21 Total Intake and Output 09/26/24 09/26/24 09/27/24 15:00 23:00 07:00 Intake Total 130 ml 800 ml Output Total 2520 ml 3525 ml Balance -2390 ml -2725 ml medications Current Medications Medications Dose Ordered Sig/Cedric Route Start Time Stop Time Status Last Admin Dose Admin Enoxaparin Sodium 30 mg DAILY SC 09/27/24 10:00 09/27/24 10:22 30 MG Insulin Glargine 15 units HS SC 09/26/24 15:15 09/26/24 21:06 15 UNITS Nifedipine 30 mg DAILY PO 09/26/24 15:15 09/27/24 10:22 30 MG Tamsulosin HCl 0.4 mg QPM PO 09/26/24 18:00 09/26/24 18:52 0.4 MG Ceftriaxone Sodium 50 ml @ 100 mls/hr DAILY@09 IV 09/26/24 15:15 09/27/24 10:20 100 MLS/HR Diagnostic Test (Pha) 1 strip IQ4HR 09/26/24 16:00 09/27/24 08:00 1 STRIP Insulin Human Regular IQ4HR SC 09/26/24 16:00 09/27/24 10:34 3 UNITS Dextrose 50 ml UD PRN IV 09/26/24 15:30 Examination Physical Exam: HEENT: No scleral icterus or oral lesions Cardiovascular: RRR, no murmurs Pulmonary: Clear to auscultation Abdomen: , no rebound or guarding, no CVA tenderness : Ng inserted with clear urine output Neuro: Alert and oriented x3 Extremities: No edema Skin: No rashes or lesions laboratory and microbiology Laboratory Tests 09/27/24 05:59 Test 09/27/24 05:59 Range/Units Serum Glucose 97 # 74-106 mg/dL Problem List/Assessment/Plan Problem List/Assessment/Plan #Acute urinary retention #EFRAIN due to obstructive uropathy #Sepsis due to UTI? #Bilateral hydronephrosis with markedly urine distended bladder and mild bladder wall thickening may represent chronic bladder outlet obstruction #BPH #Uncontrolled diabetes type 2 #Hypertensive crisis Admit Med/Surg Ng insertion: 700 cc drained Ceftriaxone IV Nifedipine PO Tamsulosin PO Lantus 15 ui ISS Pending: urine culture kidney ultrasound: mild hydronephrosis PSA mildly elevated Case discussed with Dr Foley Plan discussed with: Patient, Other My Orders My Orders Orders - SELVIN COLLINS Procedure Category Date Status Time Admit ADMIT 09/26/24 Transmitted 15:04 Code Status CODE 09/26/24 Transmitted 15:04 Vital Signs LARA 09/26/24 In Process 15:04 Review Orders With LARA 09/26/24 In Process Adm. 15:04 Consistent DIET 09/26/24 Transmitted Carb(Ccho)Diabetes Dinner Notify Of Changes LARA 09/26/24 In Process From Base 15:04 Advance Directive LARA 09/26/24 In Process 15:04 Patient Condition ORDERS 09/26/24 Transmitted 15:04 Allergies LARA 09/26/24 In Process 15:04 Insert/Manage Urinary LARA 09/26/24 In Process Catheter 15:04 Communication Order ORDERS 09/26/24 Transmitted 15:04 Insulin Lantus PHA 09/26/24 In Process (Glargine) (Lantus) 15:15 Bladder Scan ED NURSING 09/26/24 Transmitted Nifedipine Er PHA 09/26/24 In Process (Procardia Xl 15:15 Tamsulosin PHA 09/26/24 In Process Hydrochloride (Flomax) 18:00 Ceftriaxone 1gm/50ml PHA 09/26/24 In Process D5w (Rocephin) 15:15 Glucose Blood PHA 09/26/24 In Process (Accu-Chek Comfort 16:00 Insulin R (Human) PHA 09/26/24 In Process (Insulin R) 16:00 Dextrose 50% Syringe PHA 09/26/24 In Process 15:30 Enoxaparin Sodium PHA 09/27/24 In Process (Lovenox) 10:00 Mrsa Screen JOEL 09/26/24 In Process 18:39 Kidney US 09/26/24 Resulted 18:47 Urine Bacterial JOEL 09/26/24 In Process Culture 20:20 Date of Service: Sep 27, 2024 Billing Provider: MOON FOLEY MD Common Visit Codes: [id number] INP/OBS CARE(HIGH) SELVIN COLLINS RESIDENT Sep 27, 2024 11:45 MOON FOLEY MD Sep 30, 2024 21:09
[2024-09-28] VITALS (7 sets, daily range): BP systolic 102–140; BP diastolic 63–82; PULSE 64–78; RESP 16–18; TEMP 98.2–99.4; O2SAT 95–100
[2024-09-28 04:45] LABS: Basophils # (auto) 0.1 10 ^3/uL (0-0.2); Basophils % (auto) 0.8 % (0.0-2.0); Eosinophils # (auto) 0.2 10 ^3/uL (0-0.8); Hemoglobin 14.1 g/dL (13.5-17.5); Lymphocytes # (auto) 2.2 10 ^3/uL (0.4-5.4); Lymphocytes % (auto) 20.2 % (10.0-50.0); Mean Corpuscular Hemoglobin 31.3 pg (28.0-32.0); Mean Corpuscular Volume 86.8 fL (80.0-100.0); Monocytes # (auto) 1.1 10 ^3/uL (0-1.3); Monocytes % (auto) 9.6 % (0.0-12.0); Neutrophils # (auto) 7.5 10 ^3/uL (1.6-8.6); Neutrophils % (auto) 67.4 % (37.0-80.0); Nucleated Red Blood Cells % 0.1 %; Platelet Count (auto) 141 10^3/uL (140-450); Red Cell Distribution Width 12.8 % (11.8-14.3); White Blood Cell 11.1 10^3/uL (4.4-10.8)
[2024-09-28 04:54] LABS: Chloride 104 mmol/L (98-107); Potassium 3.9 mmol/L (3.5-5.1); Sodium 142 mmol/L (136-145)
[2024-09-28 04:55] LABS: Anion Gap 8 (5-15); Carbon Dioxide 30 mmol/L (20-31)
[2024-09-28 04:56] LABS: Calcium 10.3 mg/dL (8.7-10.4)
[2024-09-28 05:00] LABS: Glucose 75 mg/dL (74-106)
[2024-09-28 05:01] LABS: Blood Urea Nitrogen 24 mg/dL (9-23)
[2024-09-28 05:47] LABS: Platelet Estimate Decreased
[2024-09-28 05:48] LABS: Giant Platelets Few
[2024-09-28] MEDS ORDERED: FIN5T GT (13:41)
[2024-09-28] MEDS ORDERED: METF-929 PO (13:41)
[2024-09-28] MEDS ORDERED: TAMS0.4C39 PO (13:41)
[2024-09-28] MEDS ORDERED: LANC-347 XX (13:41)
[2024-09-28] MEDS ORDERED: BLOO-169 XX (13:41)
[2024-09-28] MEDS ORDERED: SITA50TA PO (13:41)
[2024-09-28] MEDS ORDERED: GLUC-224 VI (13:41)
[2024-09-28] MEDS ORDERED: ISOP70MI2 EX (13:41)
[2024-09-28] MEDS ORDERED: INSU100I70 SC (13:41)
[2024-09-28] MEDS ORDERED: AMLO1TAB23 PO (15:13)
--- NOTE | 2024-09-28 15:14 | DVHDSRES ---
Discharge Summary Date of Admission Resident Creating Document: SELVIN COLLINS RESIDENT Sep 26, 2024 at 15:04 Date of Discharge: Sep 28, 2024 Admitting Diagnosis Obstructive nephropathy Wounds: Labs/Diagnostic Data: Laboratory Results Test 09/28/24 11:57 09/28/24 03:59 09/26/24 12:58 09/26/24 12:01 POC Glucose 140 mg/dl (70-106) White Blood Count 11.1 10^3/uL (4.4-10.8) Red Blood Count 4.50 10^6/uL (4.5-5.90) Hemoglobin 14.1 g/dL (13.5-17.5) Hematocrit 39.0 % (41.0-53.0) Mean Corpuscular Volume 86.8 fL (80.0-100.0) Mean Corpuscular Hemoglobin 31.3 pg (28.0-32.0) Mean Corpuscular Hemoglobin Concent 36.0 g/dL (32.0-36.0) Red Cell Distribution Width 12.8 % (11.8-14.3) Platelet Count 141 10^3/uL (140-450) Mean Platelet Volume 11.1 fL (6.9-10.8) Neutrophils (%) (Auto) 67.4 % (37.0-80.0) Lymphocytes (%) (Auto) 20.2 % (10.0-50.0) Monocytes (%) (Auto) 9.6 % (0.0-12.0) Eosinophils (%) (Auto) 2.0 % (0.0-7.0) Basophils (%) (Auto) 0.8 % (0.0-2.0) Neutrophils # (Auto) 7.5 10 ^3/uL (1.6-8.6) Lymphocytes # (Auto) 2.2 10 ^3/uL (0.4-5.4) Monocytes # (Auto) 1.1 10 ^3/uL (0-1.3) Eosinophils # (Auto) 0.2 10 ^3/uL (0-0.8) Basophils # (Auto) 0.1 10 ^3/uL (0-0.2) Nucleated Red Blood Cells 0.1 % Platelet Estimate Decreased Clumped Platelets Few Giant Platelets Few Sodium Level 142 mmol/L (136-145) Potassium Level 3.9 mmol/L (3.5-5.1) Chloride Level 104 mmol/L (98-107) Carbon Dioxide Level 30 mmol/L (20-31) Anion Gap 8 (5-15) Blood Urea Nitrogen 24 mg/dL (9-23) Creatinine 1.41 mg/dL (0.700-1.30) Glomerular Filtration Rate Calc 56 mL/min (>90) BUN/Creatinine Ratio 17.0 (10.0-20.0) Serum Glucose 75 mg/dL (74-106) Calcium Level 10.3 mg/dL (8.7-10.4) Hemoglobin A1c > 14.0 % A1C (<5.7) Free Prostate Specific Antigen 1.29 ng/mL (N/A) Percent Free Prostate Specific Ag 19.3 % (.) Prostate Specific Antigen Total 6.7 ng/mL (0.0-4.0) Thyroid Stimulating Hormone (TSH) 0.68 uIU/mL (0.55-4.78) Urine Color Light-yellow (Yellow) Urine Clarity Clear (Clear) Urine pH 5.5 (5.0-9.0) Urine Specific [place] 1.006 (1.001-1.035) Urine Protein Negative (Negative) Urine Ketones Negative (Negative) Urine Blood Negative /uL (Negative) Urine Nitrite Negative (Negative) Urine Bilirubin Negative (Negative) Urine Urobilinogen Normal mg/dL (Negative) Urine Leukocyte Esterase Negative /uL (Negative) Urine RBC <1 /hpf (0 - 3) Urine Microscopic WBC 2 /HPF (0-3) Urine Squamous Epithelial Cells None seen /hpf (<5) Urine Bacteria None seen /hpf (None Seen) Urine Creatinine 55.50 mg/dL (30.0-125.0) Urine Sodium 14 mmol/L (40-220) Urine Glucose 4+ mg/dL (Normal) Urine Total Protein < 6.0 mg/dL (1-14) Urine Opiates Screen Neg (NEGATIVE) Urine Fentanyl Screen Neg (NEGATIVE) Urine Barbiturates Screen Neg (NEGATIVE) Urine Phencyclidine Screen Neg (NEGATIVE) Urine Amphetamines Screen Neg (NEGATIVE) Urine Benzodiazepines Screen Neg (NEGATIVE) Urine Cocaine Screen Pos (NEGATIVE) Urine Cannabinoids Screen Neg (NEGATIVE) Other Laboratory Tests 09/28/24 03:59 Brief Hx & Hospital Course: 64-year-old male with a history of type 2 diabetes mellitus, hypertension, hyperlipidemia, and BPH, who presents to the ED with abdominal pain. He reports suprapubic discomfort for the past 8 days, described as a sensation of "a ball stuck in the abdomen," associated with dysuria, urgency, frequency, and bloating. He denies fever, chills, back pain, or diarrhea. He also noted RLQ pain with nausea and vomiting for approximately 10 days. Pain is rated 9/10 and has been sharp in nature. No noted exacerbating or relieving factors. He reports a known history of BPH. Denies other symptoms. Patient was seen on the ED due to urinary obstruction on September 23, patient was without ng at my assessment Past Medical History: Type 2 Diabetes Mellitus Hypertension Hyperlipidemia Benign Prostatic Hyperplasia Hospital course: The patient was admitted at the line of obstructive nephropathy, due to BPH. Ng catheter was passed, and the patient we are able to drain urine. Ultrasound performed and showed mild bilateral hydronephrosis. Serum creatinine was found to be raised at 3.08, after relief of blockage, serum creatinine gradually decreased. Hb A1c was found to be more than 14, the patient was given insulin Lantus. Blood pressure was raised at 185/91, the patient was given nifedipine. On 09/29/2023, the patient was feeling better since admission. Discharge plan discussed with the patient, the patient's family and patient discharged home. Discharge plan: Follow up with the PCP within 1 week of the discharge. Follow up with the Urology on outpatient basis. Tablet tamsulosin 0.4 mg daily Tablet finasteride 5 mg daily Insulin Lantus 15 units daily Metformin 1 g b.i.d. Sitagliptin 50 mg daily Condition at Discharge: Fair Final Diagnosis/Problems List Acute urinary retention EFRAIN, likely VMN Sirs positive Bilateral hydronephrosis with markedly urine distended bladder and mild bladder wall thickening may represent chronic bladder outlet obstruction BPH Uncontrolled diabetes type 2 with hyperglycemia Hypertensive heart disease Hypertensive emergency Ruled out sepsis Sirs positive Discharge Disposition: Home Discharge Instruct/Medications Diet: Regular Activity: No Restrictions, As Tolerated Follow Up/Referral: Follow up with the PCP within 1 week of the discharge. Follow up with the Urology on outpatient basis. Medications: Insulin glargine 15 units daily, due given during the evening time Metformin 1 g b.i.d. Sitagliptin 50 mg daily Flomax 0 4 mg daily Finasteride 5 mg daily Discharge Statement: "Patient was advised to return to the ER or call 911 if any headaches, dizziness, shortness of breath, chest pain, abdominal pain, bleeding, fevers, or worsening of medical condition. Patient was counseled about treatment plan, medications, possible side effects, patientverbalized understanding. All questions were answered to the best of my ability. This discharge took greater then 30 minutes in planning, reviewing documentation, counseling the patient, and discussing with other team members." ASSESSMENT ASSESSMENT Assessment Obstructive nephropathy Date of Service: Sep 28, 2024 Billing Provider: MOON ARCOS MD Common Visit Codes: 39426-SVZ/OBS DISCH DAY >30min GRACE PIKN RESDIENT Sep 28, 2024 15:14 MOON ARCOS MD Sep 30, 2024 21:18
[2024-09-29 01:00] VITALS: BP 127/74; PULSE 79; RESP 16; TEMP 98; O2SAT 97
[2024-09-29 05:00] VITALS: BP 122/76; PULSE 89; RESP 16; TEMP 98.4; O2SAT 99
[2024-09-29 08:00] VITALS: PULSE 72; RESP 17; O2SAT 96
[2024-09-29 09:00] VITALS: BP 126/66; PULSE 72; RESP 17; TEMP 98.2; O2SAT 96
[2024-09-29] MEDS: ENOXAPARIN SOD 40 MG/0.4 ML SYRINGE SC SCH (09:07)
--- NOTE | 2024-09-29 11:23 | DVH ---
Technique: Real-time ultrasound images through the pelvis using a transabdominal transducer for evalu ation of the bladder Indication: hematuria Comparison: 09/23/2024 Findings: m there is diffuse thickening of the bladder wall up to 1.8 cm. There is hyperemia of the bladder wal l. Bladder decompressed by Rucker catheter. Impression: Abnormally thickening bladder wall diffusely with hyperemia. Correlate for cystitis, neoplasm , obst ructive etiology and other infiltrative processes. Recommend urology consultation.
[2024-09-29 13:00] VITALS: BP_SYST 127; BP_SYST 131; BP_DIAS 70; BP_DIAS 80; PULSE 71; RESP 19; TEMP 98.1; O2SAT 97; O2SAT 98
--- NOTE | 2024-09-29 15:05 | DVHPNRES ---
Progress Note Date Seen: Sep 29, 2024 Resident Creating Document: SELVIN COLLINS RESIDENT Has the PT tested + for MRSA If YES, has PT been informed?: No Medical Necessity Reason Pt with a Central, PICC or Fol: No Subjective Review of Systems 64-year-old male with a history of type 2 diabetes mellitus, hypertension, hyperlipidemia, and BPH, who presents to the ED with abdominal pain. He reports suprapubic discomfort for the past 8 days, described as a sensation of "a ball stuck in the abdomen," associated with dysuria, urgency, frequency, and bloating. He denies fever, chills, back pain, or diarrhea. He also noted RLQ pain with nausea and vomiting for approximately 10 days. Pain is rated 9/10 and has been sharp in nature. No noted exacerbating or relieving factors. He reports a known history of BPH. Denies other symptoms. Patient was seen on the ED due to urinary obstruction on September 23, patient was without ng at my assessment 09/27/2024: ng catheter placed, 700 cc drained at insertion, creatinine improves from 3 to 1.9, today clear urine, we will continue monitor today, pateint will need f/u with urologist as outpatient for possible prostetctomy, PSA mildly elevated 09/29/2024: DC was held yesterday due to hematuria, today bladder US showed bladder thickening but no large cloths, patient will be dc home with ng and urology appt . Objective vital signs Vital Sign Date Time Temp Pulse Resp B/P (MAP) Pulse Ox O2 Delivery O2 Flow Rate FiO2 09/29/24 13:00 98.1 71 19 127/70 (89) 97 98.1 09/29/24 08:00 Room Air* 0 21 Total Intake and Output 09/28/24 09/28/24 09/29/24 15:00 23:00 07:00 Intake Total 1140 ml 750 ml Output Total 850 ml 550 ml Balance 290 ml 200 ml medications Current Medications Medications Dose Ordered Sig/Cedric Route Start Time Stop Time Status Last Admin Dose Admin Insulin Glargine 15 units HS SC 09/26/24 15:15 09/28/24 21:34 15 UNITS Nifedipine 30 mg DAILY PO 09/26/24 15:15 09/29/24 09:11 30 MG Tamsulosin HCl 0.4 mg QPM PO 09/26/24 18:00 09/28/24 17:38 0.4 MG Diagnostic Test (Pha) 1 strip IQ4HR 09/26/24 16:00 09/29/24 12:14 1 STRIP Insulin Human Regular IQ4HR SC 09/26/24 16:00 09/29/24 12:14 2 UNITS Dextrose 50 ml UD PRN IV 09/26/24 15:30 Enoxaparin Sodium 40 mg DAILY SC 09/29/24 10:00 09/29/24 09:07 40 MG Examination HEENT: No scleral icterus or oral lesions Cardiovascular: RRR, no murmurs Pulmonary: Clear to auscultation Abdomen: , no rebound or guarding, no CVA tenderness : Ng inserted with clear urine output Neuro: Alert and oriented x3 Extremities: No edema Skin: No rashes or lesions laboratory and microbiology Laboratory Tests 09/28/24 03:59 Test 09/28/24 03:59 Range/Units Serum Glucose 75 74-106 mg/dL Microbiology Date/Time Source Procedure Growth Status 09/26/24 20:20 Nose MRSA Screen - Final Complete 09/26/24 12:01 Voided Urine Urine Culture - Final Complete Problem List/Assessment/Plan Problem List/Assessment/Plan #Acute urinary retention #EFRAIN due to obstructive uropathy #Sepsis due to UTI? #Bilateral hydronephrosis with markedly urine distended bladder and mild bladder wall thickening may represent chronic bladder outlet obstruction #BPH #Uncontrolled diabetes type 2 #Hypertensive crisis Ng insertion: 700 cc drained Ceftriaxone IV Nifedipine PO Tamsulosin PO Lantus 15 ui ISS kidney ultrasound: mild hydronephrosis PSA mildly elevated 09/27/2024: ng catheter placed, 700 cc drained at insertion, creatinine improves from 3 to 1.9, today clear urine, we will continue monitor today, pateint will need f/u with urologist as outpatient for possible prostetctomy, PSA mildly elevated 09/29/2024: DC was held yesterday due to hematuria, today bladder US showed bladder thickening but no large cloths, patient will be dc home with ng and urology appt . Case discussed with Dr Og Vasquez discussed with: Patient, Other My Orders My Orders Orders - SELVIN COLLINS Procedure Category Date Status Time Enoxaparin Sodium PHA 09/29/24 In Process (Lovenox) 10:00 Bladder US 09/29/24 Resulted 10:28 Discharge DISCHARGE 09/29/24 Transmitted 14:36 Communication Order ORDERS 09/29/24 Transmitted 14:36 Date of Service: Sep 29, 2024 Billing Provider: MOON ARCOS MD Common Visit Codes: [id number] INP/OBS CARE(HIGH) SELVIN COLLINS RESIDENT Sep 29, 2024 15:05 MOON ARCOS MD Sep 30, 2024 21:32
[2024-09-29 15:10] VITALS: BP 131/80; PULSE 71; RESP 19; TEMP 98.1; O2SAT 98
== END 2024-09-29 17:06 | disposition home or self-care (01) | DRG 501 ==
LOC: ER 12:21 → OVERFLOW 15:04 → WEST WING 20:30
PROVIDERS: ADMIT Student in an Organized Health Care Education/Training Program; ATTEND Emergency Medicine
DX: N40.1 Benign prostatic hyperplasia with lower urinary tract symptoms (principal); N17.0 Acute kidney failure with tubular necrosis; R65.11 Systemic inflammatory response syndrome (SIRS) of non-infectious origin with acute organ dysfunction; N13.39 Other hydronephrosis; N13.8 Other obstructive and reflux uropathy; E11.65 Type 2 diabetes mellitus with hyperglycemia; I16.1 Hypertensive emergency; E78.5 Hyperlipidemia, unspecified; I10 Essential (primary) hypertension; R33.8 Other retention of urine; N39.0 Urinary tract infection, site not specified
CPT/HCPCS: 36415; 76775; 76857; 80048; 80307; 81001; 82570; 82962; 83036; 84154; 84156; 84300; 84443; 85025; 87081; 87086; G0378; J1815

== ENCOUNTER 2024-10-08 08:39 | Emergency (ER) | payer MEDICAID ==
[~2024-10-08] VITALS: Ht 177.8 cm; Wt 63.1 kg
[~2024-10-08 08:39] MED LIST: AMLO1TAB23 PO; BLOO-169 XX; FIN5T GT; GLUC-224 VI; INSU100I70 SC; ISOP70MI2 EX; LANC-347 XX; METF-929 PO; SITA50TA PO; TAMS0.4C39 PO
--- NOTE | 2024-10-08 09:01 | ED.PDOC ---
History of Present Illness HPI Comments 64-year-old male came to the ER stating that he has a Rucker catheter in place for the past 13 days and want the catheter to be removed. History of prostate. He denies any burning on urination or any pain at urethral site. Denies fever nausea vomiting. Denies any other symptoms. Chief Complaint: Tube Replacement Time Seen by MD: 08:57 Reviewed Notes: Nurses Notes, Medications, Allergies Allergies: Coded Allergies: No Known Drug Allergy (Verified Allergy, Unknown, 09/23/24) Home Meds Active Scripts Sulfamethoxazole W/Trimethopri (Bactrim Ds Tablet) 1 Tab Tb, 1 TAB PO BID for 5 Days, #10 TAB Prov:SUNNY TRIPLETT MD 10/08/24 Amlodipine Besylate (Amlodipine Besylate) 10 Mg Tab, 10 MG PO DAILY for 20 Days, #20 TAB 2 Refills Prov:MATHEUSLACIEMATHEUSDickson RESDIENT 09/28/24 Sitagliptin (Sitagliptin) 50 Mg Tab, 50 MG PO DAILY for 20 Days, #20 TAB 1 Refill Prov:MATHEUSLACIEGRACE RESDIENT 09/28/24 Metformin HCl (Metformin Hydrochloride) 1,000 Mg Tab, 1000 MG PO BID for 20 Days, #40 TAB Prov:MATHEUSLACIEGRACE RESDIENT 09/28/24 Glucose Blood (EASY TOUCH GLUCOSE TEST S) Strips Suad, 1 EA ACHS for 20 Days, #120 MISC 1 Refill Prov:GRACE PINK RESDIENT 09/28/24 Tamsulosin Hcl (Tamsulosin Hcl) 0.4 Mg Cap, 0.4 MG PO HS for 20 Days, #60 CAP 1 Refill Prov:GRACE PINK RESDIENT 09/28/24 Glucose Blood (EASY TOUCH GLUCOSE TEST S) Strips Suad, 1 EA ACHS for 20 Days, #120 MISC Prov:MATHEUSLACIEGRAEC RESDIENT 09/28/24 Lancets (Freestyle Lancets) Lancets Mis, EA XX ACHS, #120 1 Refill Check blood sugar before each meal and at bedtime Prov:APRYLMATHEUSDickson RESDIENT 09/28/24 Blood Glucose Monitoring Suppl (EASY TOUCH GLUCOSE MONITO) Monitor Kit, EA XX ACHS, #1 Check blood sugar before each meal and at bedtime Prov:GRACE PINK RESDIENT 09/28/24 Isopropyl Alcohol (Isopropyl Alcohol Wipes) 70 % Mis, 70 % EX ACHS for 20 Days, #120 MISC 1 Refill Prov:GRACE PINK RESDIENT 09/28/24 Insulin Glargine-Yfgn (Insulin Glargine) 100 Unit/Ml Inj, 15 UNIT SC HS for 20 Days, #10 INJ 2 Refills Prov:GRACE PINK RESDIENT 09/28/24 Finasteride (Finasteride) 5 Mg Tab, 5 MG GT DAILY@BREAKFAST for 20 Days, #20 TAB 1 Refill Prov:GRACE PINK RESDIMARIA E 09/28/24 Information Source: Patient Mode of Arrival: Ambulatory Severity: Moderate Timing: Days Duration: Since onset Past Medical History PAST MEDICAL HISTORY: Denies Surgical History: Denies all surgeries Family History Family History: Reviewed,noncontributory to illness Social History Smoker: Non-Smoker Alcohol: Denies ETOH Use Drugs: Denies Drug Use Lives In: Home Constitutional: denies: chills, diaphoresis, fatigue, fever, malaise, sweats, weakness, others EENTM: denies: blurred vision, double vision, ear bleeding, ear discharge, ear drainage, ear pain, ear ringing, eye pain, eye redness, hearing loss, mouth pain, mouth swelling, nasal discharge, nose bleeding, nose congestion, nose pain, photophobia, tearing, throat pain, throat swelling, voice changes, others Respiratory: denies: cough, hemoptysis, orthopnea, SOB at rest, shortness of breath, SOB with excertion, stridor, wheezing, others Cardiovascular: denies: chest pain, dizzy spells, diaphoresis, Dyspnea on exertion, edema, irregular heart beat, left arm pain, lightheadedness, palpitations, PND, syncope, others Gastrointestinal: denies: abdomen distended, abdominal pain, blood streaked bowels, constipated, diarrhea, dysphagia, difficulty swallowing, hematemesis, melena, nausea, poor appetite, poor fluid intake, rectal bleeding, rectal pain, vomiting, others Genitourinary: denies: burning, dysuria, flank pain, frequency, hematuria, incontinence, penile discharge, penile sore, pain, testicle pain, testicle swelling, urgency, others Neurological: denies: dizziness, fainting, headache, left sided numbness, left sided weakness, numbness, paresthesia, pre-existing deficit, right sided numbness, right sided weakness, seizure, speech problems, tingling, tremors, weakness, others Musculoskeletal: denies: back pain, gout, joint pain, joint swelling, muscle pain, muscle stiffness, neck pain, others Integumetry: denies: bruises, change in color, change in hair/nails, dryness, laceration, lesions, lumps, rash, wounds, others Allergic/Immunocompromised: denies: Difficulty Healing, Frequent Infections, Hives, Itching, others Hematologic/Lymphatic: denies: anemia, blood clots, easy bleeding, easy bruising, swollen glands, others Endocrine: denies: excessive hunger, excessive sweating, excessive thirst, excessive urination, flushing, intolerance to cold, intolerance to heat, unexplained weight gain, unexplained weight loss, others Psychiatric: denies: anxiety, bipolar disorder, depression, hopeless, panic disorder, schizophrenia, sleepless, suicidal, others Physical Exam General Appearance: Moderate Distress HEENT: Normal ENT Inspection, Pharynx Normal, TMs Normal Neck: Full Range of Motion, Non-Tender, Normal, Normal Inspection Respiratory: Chest Non-Tender, Lungs Clear, No Accessory Muscle Use, No Respiratory Distress, Normal Breath Sounds Cardiovascular: No Edema, No JVD, No Murmur, No Gallop, Normal Peripheral Pulses, Regular Rate/Rhythm Breast Exam: Deferred Gastrointestinal: No Organomegaly, Non Tender, No Pulsatile Mass, Normal Bowel Sounds, Soft Genitalia: Deferred Pelvic: Deferred Rectal: Deferred Extremities: No calf tenderness, Normal capillary refill, Normal inspection, Normal range of motion, Non-tender, No pedal edema Musculoskeletal : Apperance: Normal Neurologic: Alert, water reuse program manager II-XII nml as Tested, No Motor Deficits, Normal Affect, Normal Mood, No Sensory Deficits Cerebellar Function: Normal Reflexes: Normal Skin: Dry, Normal Color, Warm Peripheral Pulses: 3+ Radial (R), 3+ Radial (L) Lymphatic: No Adenopathy Was a procedure done? Was a procedure done?: No Differential Dx Considerations may include: Urinary tract infection X-Ray, Labs, Meds, VS Vital Signs Date Time Temp Pulse Resp B/P (MAP) Pulse Ox O2 Delivery O2 Flow Rate FiO2 10/08/24 08:49 99.1 82 18 113/63 (80) 99 99.1 Lab Test 10/08/24 08:53 Range/Units Urine Color Yellow Yellow Urine Clarity Clear Clear Urine pH 6.0 5.0-9.0 Urine Specific [place] 1.022 1.001-1.035 Urine Protein 1+ H Negative Urine Ketones Negative Negative Urine Blood Negative Negative /uL Urine Nitrite Negative Negative Urine Bilirubin Negative Negative Urine Urobilinogen Normal Negative mg/dL Urine Leukocyte Esterase Trace Negative /uL Urine RBC 3 0 - 3 /hpf Urine Microscopic WBC 5 H 0-3 /HPF Urine Squamous Epithelial Cells None seen <5 /hpf Urine Bacteria Few H None Seen /hpf Urine Mucus Few None Seen Urine Glucose Trace Normal mg/dL Patient alert. Has Rucker catheter in place. Vitals stable. Answering questions. UA shows UTI. Was given prescription of Bactrim. Explained to the patient that he will need to follow up with the urologist prior to taking the catheter out. Did explained if he has the having fever pain on urination to come back for possible removal or exchange for another catheter. Was told to follow up with his primary care physician. Time of 1ST Reevaluation: 08:59 Reevaluation 1ST: Unchanged Patient Education/Counseling: Diagnosis, Treatment, Prognosis, Need For Follow Up Family Education/Counseling: No Family Present SEPSIS Sepsis Screen Date sepsis recognized/suspect: Oct 08, 2024 Time Sepsis recognized/suspect: 0851 Recent Procedure: No On Antibiotic Therapy: No Respiratory Rate >20: No Heart Rate >90: No Temp<36 C (96.8 F) or >38.3 C: No SBP <90 or MAP <65 mmHG: No New Acute Mental Status Change: No Is the patient on CPAP, BIPAP,: No Vital Signs Date Time Temp Pulse Resp B/P (MAP) Pulse Ox O2 Delivery O2 Flow Rate FiO2 10/08/24 08:49 99.1 82 18 113/63 (80) 99 99.1 Departure 1 Departure Time of Disposition: 09:00 Impression: Primary Impression: Acute urinary retention Additional Impressions: Enlarged prostate UTI (urinary tract infection) Qualified Codes: N30.00 - Acute cystitis without hematuria Disposition: 01 HOME / SELF CARE / HOMELESS Condition: Good e-Prescriptions Sulfamethoxazole W/Trimethopri (Bactrim Ds Tablet) 1 Tab Tb 1 TAB PO BID for 5 Days, #10 TAB Prov: SUNNY TRIPLETT MD 10/08/24 Discharged With: Self Critical Care Note Critical Care Time?: No Stability Stability form required: No Heart Score Heart Score: Heart Score Response (Comments) Value History N/A 0 EKG N/A 0 Age N/A 0 Risk Factors N/A 0 Troponin N/A 0 Total 0 SUNNY TRIPLETT MD Oct 08, 2024 09:01
[2024-10-08 09:31] LABS: Urine Bacteria FEW /hpf (None Seen); Urine Blood Negative /uL (Negative); Urine Clarity Clear (Clear); Urine Color Yellow (Yellow); Urine Mucus FEW (None Seen); Urine Protein, UAD 1+ (Negative); Urine Specific Gravity 1.022 (1.001-1.035); Urine Squamous Epithelial Cell None Seen /hpf (<5); Urine Urobilinogen Normal (Negative); Urine WBC 5 /HPF (0-3)
[2024-10-08] MEDS ORDERED: BACDST PO (10:15)
[2024-10-08 10:22] VITALS: BP 100/55; PULSE 78; RESP 16; TEMP 97.5; O2SAT 97
== END 2024-10-08 10:25 | disposition home or self-care (01) ==
LOC: ER 08:39
DX: N40.1 Benign prostatic hyperplasia with lower urinary tract symptoms (principal); N39.0 Urinary tract infection, site not specified; Z79.84 Long term (current) use of oral hypoglycemic drugs; Z79.899 Other long term (current) drug therapy
CPT/HCPCS: 81001

== ENCOUNTER 2024-10-27 11:05 | Emergency (ER) | payer MEDICAID ==
[~2024-10-27] VITALS: Ht 172.7 cm; Wt 63.9 kg
[~2024-10-27 11:05] MED LIST changes: +BACDST PO
--- NOTE | 2024-10-27 11:38 | ED.PDOC ---
General HPI Comments 64 y.o male with PMHx of DM, HTN and BPH, presents to the ED for a chief complaint of urinary retention x 1 day. Patient reports having history of UA retention, had a Rucker Catheter placed on 09/24/24 and had it removed yesterday by urologist in [place]. Patient was advised to come into the ED if he was unable to urinate s/p removal and states since, has only been dribbling. Patient denies any abdominal pain, fever, chills, or dysuria. Patient seen at [facility] ED on 10/08/24 for same complaint, was dx with UTI and prescribed Bactrim. Patient also mentions running out of all his medications 8 days ago. Patient educated on the importance of obtaining a PCP for f/u and for medication refill management. Time Seen by MD: 11:30 Reviewed notes: Nurses Notes, Medications, Allergies Allergies: Coded Allergies: No Known Drug Allergy (Verified Allergy, Unknown, 09/23/24) Home Meds Active Scripts Ciprofloxacin Hcl (Cipro) 500 Mg Tab, 1 TAB PO BID, #14 TAB Prov:ALESIA PRIDE MD 10/27/24 Amlodipine Besylate (Amlodipine Besylate) 10 Mg Tab, 10 MG PO DAILY for 20 Days, #20 TAB 2 Refills Prov:ALESIA PRIDE MD 10/27/24 Sitagliptin (Sitagliptin) 50 Mg Tab, 50 MG PO DAILY for 20 Days, #20 TAB 1 Refill Prov:ALESIA PRIDE MD 10/27/24 Metformin HCl (Metformin Hydrochloride) 1,000 Mg Tab, 1000 MG PO BID for 20 Days, #40 TAB Prov:ALESIA PRIDE MD 10/27/24 Glucose Blood (EASY TOUCH GLUCOSE TEST S) Strips Suad, 1 EA ACHS for 20 Days, #120 MISC 1 Refill Prov:ALESIA PRIDE MD 10/27/24 Tamsulosin Hcl (Tamsulosin Hcl) 0.4 Mg Cap, 0.4 MG PO HS for 20 Days, #60 CAP 1 Refill Prov:ALESIA PRIDE MD 10/27/24 Isopropyl Alcohol (Isopropyl Alcohol Wipes) 70 % Mis, 70 % EX ACHS for 20 Days, #120 MISC 1 Refill Prov:ALESIA PRIDE MD 10/27/24 Finasteride (Finasteride) 5 Mg Tab, 5 MG GT DAILY@BREAKFAST for 20 Days, #20 TAB 1 Refill Prov:ALESIA PRIDE MD 10/27/24 Sulfamethoxazole W/Trimethopri (Bactrim Ds Tablet) 1 Tab Tb, 1 TAB PO BID for 5 Days, #10 TAB Prov:SUNNY TRIPLETT MD 10/08/24 Glucose Blood (EASY TOUCH GLUCOSE TEST S) Strips Suad, 1 EA ACHS for 20 Days, #120 MISC Prov:GRACE PINK RESDIENT 09/28/24 Lancets (Freestyle Lancets) Lancets Mis, EA XX ACHS, #120 1 Refill Check blood sugar before each meal and at bedtime Prov:GRACE PINK RESDIENT 09/28/24 Blood Glucose Monitoring Suppl (EASY TOUCH GLUCOSE MONITO) Monitor Kit, EA XX ACHS, #1 Check blood sugar before each meal and at bedtime Prov:GRACE PINK RESDIENT 09/28/24 Insulin Glargine-Yfgn (Insulin Glargine) 100 Unit/Ml Inj, 15 UNIT SC HS for 20 Days, #10 INJ 2 Refills Prov:GRACE PINK RESDIENT 09/28/24 Information Source: Patient Mode of Arrival: Ambulatory Severity: Moderate Timing: Days (1) Duration: Since onset Onset: Spontaneous Symptoms: Inability to void History of: UTI, BPH Location: None Penile discharge: None Modifying factors: None associated signs and symptoms: Inability to Void Past Medical History PAST MEDICAL HISTORY: DM, HTN, UTI'S Past Medical History (Other): BPH Surgical History (Other): 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 Family History Family History: Reviewed,noncontributory to illness Social History Smoker: Non-Smoker Alcohol: Denies ETOH Use Drugs: Denies Drug Use Lives In: Home Constitutional: denies: chills, diaphoresis, fatigue, fever, malaise, sweats, weakness, others EENTM: denies: blurred vision, double vision, ear bleeding, ear discharge, ear drainage, ear pain, ear ringing, eye pain, eye redness, hearing loss, mouth pain, mouth swelling, nasal discharge, nose bleeding, nose congestion, nose pain, photophobia, tearing, throat pain, throat swelling, voice changes, others Respiratory: denies: cough, hemoptysis, orthopnea, SOB at rest, shortness of breath, SOB with excertion, stridor, wheezing, others Cardiovascular: denies: chest pain, dizzy spells, diaphoresis, Dyspnea on exertion, edema, irregular heart beat, left arm pain, lightheadedness, palpitations, PND, syncope, others Gastrointestinal: denies: abdomen distended, abdominal pain, blood streaked bowels, constipated, diarrhea, dysphagia, difficulty swallowing, hematemesis, melena, nausea, poor appetite, poor fluid intake, rectal bleeding, rectal pain, vomiting, others Genitourinary: reports: others (inability to urinate ); denies: burning, dysuria, flank pain, frequency, hematuria, incontinence, penile discharge, penile sore, pain, testicle pain, testicle swelling, urgency Neurological: denies: dizziness, fainting, headache, left sided numbness, left sided weakness, numbness, paresthesia, pre-existing deficit, right sided numbness, right sided weakness, seizure, speech problems, tingling, tremors, weakness, others Musculoskeletal: denies: back pain, gout, joint pain, joint swelling, muscle pain, muscle stiffness, neck pain, others Integumetry: denies: bruises, change in color, change in hair/nails, dryness, laceration, lesions, lumps, rash, wounds, others Allergic/Immunocompromised: denies: Difficulty Healing, Frequent Infections, Hives, Itching, others Hematologic/Lymphatic: denies: anemia, blood clots, easy bleeding, easy bruising, swollen glands, others Endocrine: denies: excessive hunger, excessive sweating, excessive thirst, excessive urination, flushing, intolerance to cold, intolerance to heat, unexplained weight gain, unexplained weight loss, others Psychiatric: denies: anxiety, bipolar disorder, depression, hopeless, panic disorder, schizophrenia, sleepless, suicidal, others All Other Systems: Reviewed and Negative Physical Exam General Appearance: Mild Distress HEENT: Normal ENT Inspection, Pharynx Normal, TMs Normal Neck: Full Range of Motion, Non-Tender, Normal, Normal Inspection Respiratory: Chest Non-Tender, Lungs Clear, No Accessory Muscle Use, No Respiratory Distress, Normal Breath Sounds Cardiovascular: No Edema, No JVD, No Murmur, No Gallop, Normal Peripheral Pulses, Regular Rate/Rhythm Breast Exam: Deferred Gastrointestinal: No Organomegaly, No Pulsatile Mass, Normal Bowel Sounds, Soft, Suprapubic, Tenderness Genitalia: Deferred Pelvic: Deferred Rectal: Deferred Extremities: No calf tenderness, Normal capillary refill, Normal inspection, Normal range of motion, Non-tender, No pedal edema Musculoskeletal : Apperance: Normal Neurologic: Alert, top knitter II-XII nml as Tested, No Motor Deficits, Normal Affect, Normal Mood, No Sensory Deficits Cerebellar Function: Normal Reflexes: Normal Skin: Dry, Normal Color, Warm Lymphatic: No Adenopathy Was a procedure done? Was a procedure done?: No Differential Diagnosis Kidney stone (Female): N/A Urinary Problem (Male): Bladder Outlet, Prostatitis, Urinary Retention X-Ray, Labs, Meds, VS Vital Signs Date Time Temp Pulse Resp B/P (MAP) Pulse Ox O2 Delivery O2 Flow Rate FiO2 10/27/24 11:52 98.1 96 16 122/72 (89) 96 98.1 10/27/24 11:52 96 17 96 Room Air 10/27/24 11:25 98.2 100 18 117/75 (89) 97 98.2 Lab Test 10/27/24 11:29 10/27/24 11:26 Range/Units POC Glucose 232 H 70-106 mg/dl Urine Color Kendra H Yellow Urine Clarity Turbid H Clear Urine pH 7.5 5.0-9.0 Urine Specific [place] 1.013 1.001-1.035 Urine Protein Negative Negative Urine Ketones Negative Negative Urine Blood Trace H Negative /uL Urine Nitrite 2+ H Negative Urine Bilirubin Negative Negative Urine Urobilinogen Normal Negative mg/dL Urine Leukocyte Esterase Trace Negative /uL Urine RBC 21 0 - 3 /hpf Urine Microscopic WBC 13 H 0-3 /HPF Urine Squamous Epithelial Cells None seen <5 /hpf Urine Bacteria None seen None Seen /hpf Urine Mucus Few None Seen Urine Glucose 4+ H Normal mg/dL The urine test is positive for UTI The patient is being discharged and will follow up with the primary care doctor The patient will return to the emergency department's the condition worsens. At this time, the patient is being discharged on Cipro Images Reviewed?: Images reviewed and evaluated by me Time of 1ST Reevaluation: 11:37 Reevaluation 1ST: Unchanged Patient Education/Counseling: Diagnosis, Treatment, Prognosis, Need For Follow Up Family Education/Counseling: No Family Present SEPSIS Sepsis Screen Physician Orders Rucker Catheters (10/27/24 ) Leg Bag (10/27/24 ) Vital Signs Date Time Temp Pulse Resp B/P (MAP) Pulse Ox O2 Delivery O2 Flow Rate FiO2 10/27/24 11:52 98.1 96 16 122/72 (89) 96 98.1 10/27/24 11:52 96 17 96 Room Air 10/27/24 11:25 98.2 100 18 117/75 (89) 97 98.2 Departure 1 Departure Time of Disposition: 14:20 Impression: Primary Impression: Acute urinary retention Additional Impression: UTI (urinary tract infection) Qualified Codes: N30.00 - Acute cystitis without hematuria Disposition: HOME / SELF CARE / HOMELESS Condition: Fair e-Prescriptions Ciprofloxacin Hcl (Cipro) 500 Mg Tab 1 TAB PO BID, #14 TAB Prov: ALESIA PRIDE MD 10/27/24 Amlodipine Besylate (Amlodipine Besylate) 10 Mg Tab 10 MG PO DAILY for 20 Days, #20 TAB 2 Refills Prov: ALESIA PRIDE MD 10/27/24 Sitagliptin (Sitagliptin) 50 Mg Tab 50 MG PO DAILY for 20 Days, #20 TAB 1 Refill Prov: ALESIA PRIDE MD 10/27/24 Metformin HCl (Metformin Hydrochloride) 1,000 Mg Tab 1000 MG PO BID for 20 Days, #40 TAB Prov: ALESIA PRIDE MD 10/27/24 Glucose Blood (EASY TOUCH GLUCOSE TEST S) Strips Suad 1 EA ACHS for 20 Days, #120 MISC 1 Refill Prov: ALESIA PRIDE MD 10/27/24 Tamsulosin Hcl (Tamsulosin Hcl) 0.4 Mg Cap 0.4 MG PO HS for 20 Days, #60 CAP 1 Refill Prov: ALESIA PRIDE MD 10/27/24 Isopropyl Alcohol (Isopropyl Alcohol Wipes) 70 % Mis 70 % EX ACHS for 20 Days, #120 MISC 1 Refill Prov: ALESIA PRIDE MD 10/27/24 Finasteride (Finasteride) 5 Mg Tab 5 MG GT DAILY@BREAKFAST for 20 Days, #20 TAB 1 Refill Prov: ALESIA PRIDE MD 10/27/24 Discharged With: Self Critical Care Note Critical Care Time?: No Stability Stability form required: No I personally scribed for ALESIA PRIDE MD ([email or web address]) on 10/27/24 at 11:38. Electronically submitted by Praveena Morales ([facility]). ALESIA PRIDE MD Oct 27, 2024 11:38
[2024-10-27] MEDS ORDERED: METF-929 PO (11:44)
[2024-10-27] MEDS ORDERED: ISOP70MI2 EX (11:44)
[2024-10-27] MEDS ORDERED: FIN5T GT (11:44)
[2024-10-27] MEDS ORDERED: SITA50TA PO (11:44)
[2024-10-27] MEDS ORDERED: AMLO1TAB23 PO (11:44)
[2024-10-27] MEDS ORDERED: TAMS0.4C39 PO (11:44)
[2024-10-27] MEDS ORDERED: GLUC-224 VI (11:44)
[2024-10-27 11:52] VITALS: TEMP 98.1
[2024-10-27 13:02] LABS: Urine Protein, UAD Negative (Negative)
[2024-10-27] MEDS ORDERED: CIPR-173 PO (14:20)
[2024-10-27 14:35] VITALS: BP 113/68; PULSE 86; RESP 20; O2SAT 97
== END 2024-10-27 14:38 | disposition home or self-care (01) ==
LOC: ER 11:05
DX: N39.0 Urinary tract infection, site not specified (principal); R33.9 Retention of urine, unspecified; E11.9 Type 2 diabetes mellitus without complications; I10 Essential (primary) hypertension; N40.1 Benign prostatic hyperplasia with lower urinary tract symptoms; Z87.440 Personal history of urinary (tract) infections; Z79.84 Long term (current) use of oral hypoglycemic drugs; Z79.899 Other long term (current) drug therapy
CPT/HCPCS: 51702; 81001; 82947; 99284; A4315; 82962